=== PATIENT | male | born 1960 | race Caucasian/White ===

== ENCOUNTER 2019-05-11 23:18 | Emergency (ER) | payer BC, OTHER ==
[2019-05-11] MEDS ORDERED: Sodium Chloride 0.9% 10 ML Syringe FLUSH PRN (23:44)
[2019-05-11] MEDS ORDERED: Sodium Chloride 0.9% 2.5 ML Syringe FLUSH PRN (23:44)
[2019-05-11] MEDS ORDERED: Sodium Chloride 0.9% 1,000 ML IV ONE (23:45)
--- NOTE | 2019-05-11 23:51 | EDM.PDOC ---
ED HPI GENERAL MEDICAL PROBLEM - General Chief Complaint: Neurological Problem Stated Complaint: SEIZURE Time Seen by Provider: 05/11/19 23:25 - History of Present Illness INITIAL COMMENTS - FREE TEXT/NARRATIVE: HISTORY AND PHYSICAL: History of present illness: The patient is a 58-year-old male who has no significant past medical history and does follow in our [facility] practice [facility], who admits that he smokes cigarettes but denies drug use and drinks alcohol on a daily basis, and presents with acute onset of a syncopal event and abnormal motor activity that the thought was seizure activity. The patient said he had a normal day today without any systemic issues such as chest pain shortness of breath URI symptoms fevers chills nausea vomiting abdominal pain diarrhea or urinary symptoms. He ate and drank normally and did drink beer this evening. He was sitting in a chair and he says that he got up to go to bed and he started walking and the next thing he recalls is being on the ground. The says that she saw him get up and start walking and he crumbled to the ground not hitting any objects and he was twitching and his eyes were rolled back in his head. He did not have loss of bowel or bladder and the episode of unresponsiveness lasted about a minute and a half. He currently has no complaints of pain as a result of falling on the ground such as head neck or back pain or extremity pain and has actually no symptomatology here of lightheadedness dizziness or any other things such as chest pain shortness of breath nausea vomiting or abdominal complaints. He says he recalls waking up and wondering why his hands felt tingly and why he was on the ground. He was awake and alert and oriented after a short time while he was on the ground. He had no prolonged postictal phase. The patient has never had a seizure before nor has he ever passed out in the past. He says that he didn't feel lightheaded or dizzy when he was getting up and he currently does not feel that way. These events occurred approximately 35 minutes prior to their arrival in the ED. Review of systems: As per history of present illness and below otherwise all systems reviewed and negative. Past medical history: As per history of present illness and as reviewed below otherwise noncontributory. Surgical history: As per history of present illness and as reviewed below otherwise noncontributory. Social history: No reported history of drug or alcohol abuse. Family history: As per history of present illness and as reviewed below otherwise noncontributory. Physical exam: General: Well-developed well-nourished man who is nontoxic and well ambulated into the ED without any distress. He is speaking clearly and easily and vital signs are noted by me HEENT: Atraumatic, normocephalic, pupils reactive, negative for conjunctival pallor or scleral icterus, mucous membranes moist, throat clear, neck supple, nontender, trachea midline. There is no evidence of any scalp defects deformities or tenderness nor any midline step-offs in his defects of the cervical spine. There is no facial swelling or traumatic areas seen nor is there any tenderness. Lungs: Clear to auscultation with some slightly diminished breath sounds in the bases bilaterally but no wheezing or stridor, breath sounds equal bilaterally, chest nontender. Heart: S1S2, regular, negative for clicks, rubs, or JVD. Abdomen: Soft, nondistended, nontender. Negative for masses or hepatosplenomegaly. Negative for costovertebral tenderness. Pelvis: Stable nontender. Genitourinary: Deferred. Rectal: Deferred. Extremities: Atraumatic, negative for cords or calf pain. Neurovascular unremarkable. Full range of motion without defects deficits or tenderness Neuro: Awake, alert, oriented. Cranial nerves II through XII unremarkable. Cerebellum unremarkable. Motor and sensory unremarkable throughout. Exam nonfocal. Back: There are no midline step-offs in his defects of the thoracic or lumbar spine no posterior rib or posterior pelvis tenderness and no soft tissue injuries are appreciated Diagnostics: EKG CBC CMP prolactin alcohol level INR troponin TSH magnesium level UA with reflex UDS orthostatic vitals CT scan of the head chest x-ray Therapeutics: IV O2 monitor IV fluids I did explain to the and patient at bedside that history that they're giving me sounds more like a syncopal event with some abnormal motor activity after he was unconscious and less like a seizure. I also told him that I cannot definitely confirm or decline that and he will need to follow-up and get an outpatient EEG to ascertain if he truly has a seizure focus. We will continue to do the workup as above or syncope and loss of consciousness. I discussed with patient and all testing results and my concerns and need for observation admission and he is declining. I have spoken to them several times about my concerns and the need for this admission as this may have been a cardiac event that can recur and cause further problems or complications or may have been a neurologic event that I could not identify here in the ED. The patient states understanding and wants to go home and the is supportive of his decision although she feels hesitant. I told them that they need to connect with her family doctor on Monday and if anything changes and they want further care that they return here to the ED. Both state understanding. Impression: Syncopal event with abnormal motor activity etiology unclear, declining admission Definitive disposition and diagnosis as appropriate pending reevaluation and review of above. - Related Data Allergies Allergy/AdvReac Type Severity Reaction Status Date / Time No Known Allergies Allergy Verified 05/11/19 23:31 Home Meds: Home Meds Aspirin 81 mg PO DAILY 05/11/19 [History] Esomeprazole Magnesium [Nexium] 0 mg PO DAILY 05/11/19 [History] Levothyroxine Sodium [Synthroid] 0 mg PO DAILY 05/11/19 [History] Past Medical History HEENT History: Reports: Impaired Vision, Other (See Below) Other HEENT History: wears glasses Neurological History: Reports: Other (See Below) Other Neuro History: Austin palsy Endocrine/Metabolic History: Reports: Hyperthyroidism - Infectious Disease History Infectious Disease History: Reports: Measles - Past Surgical History HEENT Surgical History: Reports: None Endocrine Surgical History: Reports: None Neurological Surgical History: Reports: None Social & Family History - Family History Family Medical History: Noncontributory - Tobacco Use Smoking Status *Q: Current Every Day Smoker Years of Tobacco use: 45 Packs/Tins Daily: 1.5 - Caffeine Use Caffeine Use: Reports: Coffee - Alcohol Use Days Per Week of Alcohol Use: 7 Number of Drinks Per Day: 2 Total Drinks Per Week: 14 - Recreational Drug Use Recreational Drug Use: No ED ROS GENERAL - Review of Systems Review Of Systems: Comprehensive ROS is negative, except as noted in HPI. ED EXAM, GENERAL - Physical Exam Exam: See Below (see dictation) Course - Vital Signs Last Recorded V/S: Last Vital Signs Temp 36.4 C 05/11/19 23:23 Pulse 76 05/11/19 23:23 Resp 18 05/11/19 23:23 BP 140/93 H 05/11/19 23:23 Pulse Ox 97 05/11/19 23:23 Orthostatic Blood Pressure [ 121/75 Standing] Orthostatic Blood Pressure [ 123/79 Sitting] Orthostatic Blood Pressure [ 118/76 Supine] - Orders/Labs/Meds Orders: Active Orders 24 hr Category Date Time Status Cardiac Monitoring [RC] . DIRECTED Care 05/11/19 23:44 Active EKG Documentation Completion [RC] STAT Care 05/11/19 23:44 Active Orthostatic Vital Signs [RC] ASDIRECTED Care 05/11/19 23:44 Active Oxygen Therapy, ED [RC] ASDIRECTED Care 05/11/19 23:44 Active Pulse Oximetry [RC] ASDIRECTED Care 05/11/19 23:44 Active COMPREHENSIVE METABOLIC PN,CMP [CHEM] Stat Lab 05/11/19 23:45 Results ETHANOL BLOOD MEDICAL [CHEM] Stat Lab 05/11/19 23:45 Results MAGNESIUM [CHEM] Stat Lab 05/11/19 23:45 Results PROLACTIN [CHEM] Stat Lab 05/11/19 23:45 Results TROPONIN I [CHEM] Stat Lab 05/11/19 23:45 Results TSH [CHEM] Stat Lab 05/11/19 23:45 Results Sodium Chloride 0.9% [Saline Flush] Med 05/11/19 23:44 Active 10 ml FLUSH ASDIRECTED PRN Sodium Chloride 0.9% [Saline Flush] Med 05/11/19 23:44 Active 2.5 ml FLUSH ASDIRECTED PRN Saline Lock Insert [OM.PC] Stat Oth 05/11/19 23:44 Ordered Medication Orders Sodium Chloride (Saline Flush) 10 ml FLUSH ASDIRECTED PRN PRN Reason: Keep Vein Open Sodium Chloride (Saline Flush) 2.5 ml FLUSH ASDIRECTED PRN PRN Reason: Keep Vein Open Labs: Laboratory Tests 05/12/19 05/12/19 05/12/19 Range/Units 00:00 00:00 00:00 WBC 7.62 (4.0-11.0) K/uL RBC 4.68 (4.50-5.90) M/uL Hgb 14.9 (13.0-17.0) g/dL Hct 43.3 (38.0-50.0) % MCV 92.5 (80.0-98.0) fL MCH 31.8 (27.0-32.0) pg MCHC 34.4 (31.0-37.0) g/dL RDW Std Deviation 41.8 (28.0-62.0) fl RDW Coeff of Gabrielle 12 (11.0-15.0) % Plt Count 253 (150-400) K/uL MPV 8.70 (7.40-12.00) fL Add Manual Diff YES Neutrophils % (Manual) 53 (48.0-80.0) % Lymphocytes % (Manual) 38 (16.0-40.0) % Monocytes % (Manual) 7 (0.0-15.0) % Eosinophils % (Manual) 2 (0.0-7.0) % Nucleated RBC % 0.0 /100WBC Absolute Seg Neuts 4.0 (1.4-5.7) Lymphocytes # (Manual) 2.9 H (0.6-2.4) Monocytes # (Manual) 0.5 (0.0-0.8) Eosinophils # (Manual) 0.2 (0.0-0.7) Nucleated RBCs # 0 K/uL INR 0.96 Sodium 136 (136-148) mmol/L Potassium 3.6 (3.5-5.1) mmol/L Chloride 101 (98-107) mmol/L Carbon Dioxide 21.7 (21.0-32.0) mmol/L BUN 7 (7.0-18.0) mg/dL Creatinine 0.9 (0.8-1.3) mg/dL Est Cr Clr Drug Dosing 96.45 mL/min Estimated GFR (MDRD) > 60.0 ml/min Glucose 95 (74-106) mg/dL Calcium 8.3 L (8.5-10.1) mg/dL Magnesium 2.0 (1.8-2.4) mg/dL Total Bilirubin 0.2 (0.2-1.0) mg/dL AST 16 (15-37) IU/L ALT 29 (14-63) IU/L Alkaline Phosphatase 82 (46-116) U/L Troponin I < 0.050 (0.000-0.056) ng/mL Total Protein 7.5 (6.4-8.2) g/dL Albumin 3.8 (3.4-5.0) g/dL Globulin 3.7 (2.6-4.0) g/dL Albumin/Globulin Ratio 1.0 (0.9-1.6) TSH 3rd Generation 0.33 L (0.36-3.74) uIU/mL Urine Color Urine Appearance Urine pH (5.0-8.0) Ur Specific [place] (1.001-1.035) Urine Protein (NEGATIVE) mg/dL Urine Glucose (UA) (NEGATIVE) mg/dL Urine Ketones (NEGATIVE) mg/dL Urine Occult Blood (NEGATIVE) Urine Nitrite (NEGATIVE) Urine Bilirubin (NEGATIVE) Urine Urobilinogen (<2.0) EU/dL Ur Leukocyte Esterase (NEGATIVE) Urine Opiates Screen (NEGATIVE) Ur Oxycodone Screen (NEGATIVE) Urine Methadone Screen (NEGATIVE) Ur Barbiturates Screen (NEGATIVE) Ur Phencyclidine Scrn (NEGATIVE) Ur Amphetamine Screen (NEGATIVE) U Methamphetamines Scrn (NEGATIVE) U Benzodiazepines Scrn (NEGATIVE) U Cocaine Metab Screen (NEGATIVE) U Marijuana (THC) Screen (NEGATIVE) Ethyl Alcohol 144 mg/dL 05/12/19 05/12/19 Range/Units 00:30 00:30 WBC (4.0-11.0) K/uL RBC (4.50-5.90) M/uL Hgb (13.0-17.0) g/dL Hct (38.0-50.0) % MCV (80.0-98.0) fL MCH (27.0-32.0) pg MCHC (31.0-37.0) g/dL RDW Std Deviation (28.0-62.0) fl RDW Coeff of Gabrielle (11.0-15.0) % Plt Count (150-400) K/uL MPV (7.40-12.00) fL Add Manual Diff Neutrophils % (Manual) (48.0-80.0) % Lymphocytes % (Manual) (16.0-40.0) % Monocytes % (Manual) (0.0-15.0) % Eosinophils % (Manual) (0.0-7.0) % Nucleated RBC % /100WBC Absolute Seg Neuts (1.4-5.7) Lymphocytes # (Manual) (0.6-2.4) Monocytes # (Manual) (0.0-0.8) Eosinophils # (Manual) (0.0-0.7) Nucleated RBCs # K/uL INR Sodium (136-148) mmol/L Potassium (3.5-5.1) mmol/L Chloride (98-107) mmol/L Carbon Dioxide (21.0-32.0) mmol/L BUN (7.0-18.0) mg/dL Creatinine (0.8-1.3) mg/dL Est Cr Clr Drug Dosing mL/min Estimated GFR (MDRD) ml/min Glucose (74-106) mg/dL Calcium (8.5-10.1) mg/dL Magnesium (1.8-2.4) mg/dL Total Bilirubin (0.2-1.0) mg/dL AST (15-37) IU/L ALT (14-63) IU/L Alkaline Phosphatase (46-116) U/L Troponin I (0.000-0.056) ng/mL Total Protein (6.4-8.2) g/dL Albumin (3.4-5.0) g/dL Globulin (2.6-4.0) g/dL Albumin/Globulin Ratio (0.9-1.6) TSH 3rd Generation (0.36-3.74) uIU/mL Urine Color YELLOW Urine Appearance CLEAR Urine pH 5.5 (5.0-8.0) Ur Specific [place] 1.010 (1.001-1.035) Urine Protein NEGATIVE (NEGATIVE) mg/dL Urine Glucose (UA) NEGATIVE (NEGATIVE) mg/dL Urine Ketones NEGATIVE (NEGATIVE) mg/dL Urine Occult Blood NEGATIVE (NEGATIVE) Urine Nitrite NEGATIVE (NEGATIVE) Urine Bilirubin NEGATIVE (NEGATIVE) Urine Urobilinogen 0.2 (<2.0) EU/dL Ur Leukocyte Esterase NEGATIVE (NEGATIVE) Urine Opiates Screen NEGATIVE (NEGATIVE) Ur Oxycodone Screen NEGATIVE (NEGATIVE) Urine Methadone Screen NEGATIVE (NEGATIVE) Ur Barbiturates Screen NEGATIVE (NEGATIVE) Ur Phencyclidine Scrn NEGATIVE (NEGATIVE) Ur Amphetamine Screen NEGATIVE (NEGATIVE) U Methamphetamines Scrn NEGATIVE (NEGATIVE) U Benzodiazepines Scrn NEGATIVE (NEGATIVE) U Cocaine Metab Screen NEGATIVE (NEGATIVE) U Marijuana (THC) Screen NEGATIVE (NEGATIVE) Ethyl Alcohol mg/dL Meds: Medications Generic Name Dose Route Start Last Admin Trade Name Freq PRN Reason Stop Dose Admin Sodium Chloride 10 ml 05/11/19 23:44 Saline Flush FLUSH ASDIRECTED PRN Keep Vein Open Sodium Chloride 2.5 ml 05/11/19 23:44 Saline Flush FLUSH ASDIRECTED PRN Keep Vein Open Discontinued Medications Generic Name Dose Route Start Last Admin Trade Name Miguel PRN Reason Stop Dose Admin Sodium Chloride 1,000 mls @ 999 mls/hr 05/11/19 23:45 05/11/19 23:58 Normal Saline IV 05/12/19 00:45 999 mls/hr STAT ONE Administration Departure - Departure Time of Disposition: 02:07 Disposition: Home, Self-Care 01 Condition: Good Clinical Impression: Abnormal motor activity Syncope Qualifiers: Syncope type: unspecified Qualified Code(s): R55 - Syncope and collapse - Discharge Information Referrals: PCP,None [Primary Care Provider] - Forms: ED Department Discharge Additional Instructions: The following information is given to patients seen in the emergency department who are being discharged to home. This information is to outline your options for follow-up care. We provide all patients seen in our emergency department with a follow-up referral. The need for follow-up, as well as the timing and circumstances, are variable depending upon the specifics of your emergency department visit. If you don't have a primary care physician on staff, we will provide you with a referral. We always advise you to contact your personal physician following an emergency department visit to inform them of the circumstance of the visit and for follow-up with them and/or the need for any referrals to a consulting specialist. The emergency department will also refer you to a specialist when appropriate. This referral assures that you have the opportunity for followup care with a specialist. All of these measure are taken in an effort to provide you with optimal care, which includes your followup. Under all circumstances we always encourage you to contact your private physician who remains a resource for coordinating your care. When calling for followup care, please make the office aware that this follow-up is from your recent emergency room visit. If for any reason you are refused follow-up, please contact the [facility] emergency department at and ask to speak to the emergency department charge nurse. [facility] Primary care- Internal Medicine and Family [address] [address] Please continue to monitor the symptoms and return to ER as needed and as we discussed. Avoid alcohol and push hydration. Please connect with your provider the clinic for further care and evaluation as we discussed. - My Orders Last 24 Hours: My Active Orders 05/11/19 23:44 Cardiac Monitoring [RC] . DIRECTED EKG Documentation Completion [RC] STAT Orthostatic Vital Signs [RC] ASDIRECTED Oxygen Therapy, ED [RC] ASDIRECTED Pulse Oximetry [RC] ASDIRECTED Sodium Chloride 0.9% [Saline Flush] 10 ml FLUSH ASDIRECTED PRN Sodium Chloride 0.9% [Saline Flush] 2.5 ml FLUSH ASDIRECTED PRN Saline Lock Insert [OM.PC] Stat 05/11/19 23:45 COMPREHENSIVE METABOLIC PN,CMP [CHEM] Stat ETHANOL BLOOD MEDICAL [CHEM] Stat MAGNESIUM [CHEM] Stat PROLACTIN [CHEM] Stat TROPONIN I [CHEM] Stat TSH [CHEM] Stat - Assessment/Plan Last 24 Hours: My Active Orders 05/11/19 23:44 Cardiac Monitoring [RC] . DIRECTED EKG Documentation Completion [RC] STAT Orthostatic Vital Signs [RC] ASDIRECTED Oxygen Therapy, ED [RC] ASDIRECTED Pulse Oximetry [RC] ASDIRECTED Sodium Chloride 0.9% [Saline Flush] 10 ml FLUSH ASDIRECTED PRN Sodium Chloride 0.9% [Saline Flush] 2.5 ml FLUSH ASDIRECTED PRN Saline Lock Insert [OM.PC] Stat 05/11/19 23:45 COMPREHENSIVE METABOLIC PN,CMP [CHEM] Stat ETHANOL BLOOD MEDICAL [CHEM] Stat MAGNESIUM [CHEM] Stat PROLACTIN [CHEM] Stat TROPONIN I [CHEM] Stat TSH [CHEM] Stat
[2019-05-12 00:36] LABS: BLOOD UREA NITROGEN,BUN 7 mg/dL (7.0-18.0); CARBON DIOXIDE,CO2 21.7 mmol/L (21.0-32.0); CHLORIDE,CL 101 mmol/L (98-107); GLUCOSE RANDOM 95 mg/dL (74-106); POTASSIUM,K 3.6 mmol/L (3.5-5.1); SODIUM,NA 136 mmol/L (136-148)
--- NOTE | 2019-05-12 01:07 | CR ---
INDICATION: Dizziness TECHNIQUE: Chest radiograph 1 view on 2 films COMPARISON: None FINDINGS: Mediastinum: The mediastinum is normal in appearance. The heart silhouette is normal in size and morphology. Lung: Both lungs are unremarkable in appearance. No sign of pleural effusion seen. No pneumothorax is identified. Bone and Soft tissue: Unremarkable for age. IMPRESSION: 1. No acute cardiopulmonary disease is seen. Dictated by: Garrett Carl MD @ 05/12/2019 01:06:13 (Electronically Signed)
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
== END 2019-05-12 02:30 | disposition home or self-care (01) ==
LOC: MW.ED 23:18
DX: R55 Syncope and collapse (principal); R25.9 Unspecified abnormal involuntary movements; E05.90 Thyrotoxicosis, unspecified without thyrotoxic crisis or storm; F17.210 Nicotine dependence, cigarettes, uncomplicated; Z79.82 Long term (current) use of aspirin; Z79.899 Other long term (current) drug therapy
CPT/HCPCS: 36415; 70450; 71045; 80053; 80305; 80320; 81003; 83735; 84146; 84443; 84484; 85025; 85610; 93005; 96360; 96361; 99285; J7040; 99284; G0480; J7030

== ENCOUNTER 2021-09-10 07:17 | Day surgery (SDC) | payer BC ==
[~2021-09-10 07:17] MED LIST: Lactated Ringers 1,000 ML IV SCH; Midazolam 1 MG/ML 2 ML SDV ONE; Ondansetron 4 MG/2 ML SDV ONE; Propofol 200 MG/20 ML SDV ONE; fentaNYL 100 MCG/2 ML SDV ONE
== END 2021-09-10 09:44 | disposition home or self-care (01) ==
LOC: MW.SDS 07:17
PROVIDERS: ATTEND Surgery
DX: Z12.11 Encounter for screening for malignant neoplasm of colon (principal); I10 Essential (primary) hypertension; K21.9 Gastro-esophageal reflux disease without esophagitis; E03.9 Hypothyroidism, unspecified; H54.7 Unspecified visual loss; Z86.16 Personal history of COVID-19; F17.210 Nicotine dependence, cigarettes, uncomplicated; Z98.890 Other specified postprocedural states; Z90.89 Acquired absence of other organs; Z79.890 Hormone replacement therapy; Z79.899 Other long term (current) drug therapy
CPT/HCPCS: 45378; J2250; J2405; J2704; J3010; J7120

== ENCOUNTER 2023-08-22 09:39 | Emergency (ER) | payer BC ==
[2023-08-22] MEDS: Albuterol/Ipratropium 3.0-0.5 MG/3 ML Neb Soln NEB ONE (10:14)
[2023-08-22] MEDS: predniSONE 20 MG Tab PO ONE (10:14)
[2023-08-22 10:57] LABS: CORONAVIRUS COVID-19 NAA NEGATIVE (NEGATIVE); INFLUENZA A NAA NEGATIVE (NEGATIVE); INFLUENZA B NAA NEGATIVE (NEGATIVE)
== END 2023-08-22 11:10 | disposition home or self-care (01) ==
LOC: MW.ED 09:39
DX: J45.909 Unspecified asthma, uncomplicated (principal); I10 Essential (primary) hypertension; K21.9 Gastro-esophageal reflux disease without esophagitis; E03.9 Hypothyroidism, unspecified; Z79.899 Other long term (current) drug therapy
CPT/HCPCS: 0240U; 71045; 94640; 99284; A9270; 99283; J7620-GY